=== PATIENT | female | born 1990 | race Hispanic/Latino ===

== ENCOUNTER 2018-04-15 10:09 | Emergency (ER) | payer OTHER ==
[2018-04-15 11:55] VITALS: BMI 34.0
--- NOTE | 2018-04-15 14:02 | US ---
PROCEDURE: HISTORY: LMP COMPARISON: None TECHNIQUE: Transabdominal scanning of the maternal pelvis and a 2nd/ 3rd trimester with image documentation FINDINGS: Fetus: Single intrauterine gestation heart rate: Present at 127 beats per minute presentation: Cephalic Placenta: Fundal and left-sidedwithout previa or abruption Amniotic fluid : Normal appearing: anatomy: Limited due to late gestation. Biophysical profile: Breathin Gross body movements: 2 Limb tone: 2 Amniotic Fluid: 2 Total biophysical profile: 06/02 IMPRESSION: Single intrauterine gestation with normal cardiac activity. presentation - cephalic. No previa . Biophysical profile 06/02 The gestational age by 35 weeks 6 days Estimated date of delivery 05/14/2018
--- NOTE | 2018-04-15 15:09 | OBHP ---
Datetime: 04/15/2018 15:00 IP Adm Impression: Term, intrauterine ; No Active Labor; Intact Membranes IP Admit Plan: Observation/Evaluation; Discharge home Admit Comment, IP Provider: 28-year-old 0-2 at 35 weeks and 6 days gestational age presents to OB ED with complaint of leakage of fluids. Patient describes feeling small amount of fluid in the mo rning and was concerned if her water possibly broke. Patient denies any contractions or vaginal bleed ing. Patient reports good movement. records reviewed. Past medical history gestational diabetes, diet controlled Past surgical history denies Medications vitamins No known drug allergies Obstetrical history full-term 2, first trimester miscarriage 1, elective TOP 1 Social history denies tobacco, drugs, alcohol Assessment: 0-2 at 35 weeks and 6 days gestational age. No evidence of spontaneous rupture of membranes at this time. No evidence of labor at this time. BPP8/8. Plan: Patient discharged home with labor precautions Follow-up in office in 1 week as already scheduled. Pelvic Type - PN: Adequate Extremities - PN: Normal Abdomen - PN: Normal Back - PN: Normal Lungs - PN: Normal Heart - PN: Normal Neurologic - PN: Normal HEENT - PN: Normal General - PN: Normal FHR - Baseline A Provider: 120s-130s Membranes, Provider: Intact Comments, ACOG Physical Exam: Sterile speculum exam: No fluid, no blood, no discharge No fluid with Valsalva Cervix long, closed, posterior Biophysical profile 06/02 Pool Provider: Negative IP Hx Assessment: The History has been Reviewed and is Current EGA AdmitDate IP: 35.6 Vital Signs Provider: Reviewed; Within Normal Limits IP Chief Complaint: Suspected ruptured membranes NICHD Variability Prov Fetus A: Moderate 6-25bpm NICHD Accel Fetus A IP Provider: 15X15 FHR Category Provider Fetus A: Category I NICHD Decel Fetus A IP Provider: None Dilatation, Provider: 0 Effacement, Provider: 0 Station, Provider: -4 Genitourinary Exam: Normal
[2018-04-15 19:05] VITALS: BP 83/43; PULSE 78; RESP 17; O2SAT 99
== END 2018-04-15 14:15 | disposition home or self-care (01) ==
LOC: H.EROB2 10:09 → H.EROB 10:25 → H.EROB2 14:15
DX: O47.1 False labor at or after 37 completed weeks of gestation (principal); O24.419 Gestational diabetes mellitus in pregnancy, unspecified control; Z3A.35 35 weeks gestation of pregnancy

== ENCOUNTER 2018-04-20 06:23 | Inpatient (IN) | payer OTHER ==
[2018-04-20 08:28] VITALS: BMI 34.3
[2018-04-20] MEDS ORDERED: Lactated Ringer's 1,000 ML IV SCH ×2 (09:00→11:45)
[2018-04-20] MEDS ORDERED: Oxytocin 30 units/LR 500ML 30 U/500 ML BAG IV SCH (09:00)
[2018-04-20 09:49] LABS: BASO % 0.3 % (0.0-2.0); EOS # 0.3 K/uL (0.0-0.7); EOS % 2.5 % (0.0-4.0); HEMOGLOBIN 11.7 g/dL (12.0-16.0); LYMPH # 2.1 K/uL (1.0-4.3); LYMPH % 16.3 % (20.0-40.0); MEAN CORPUSCULAR HEMOGLOBIN 31.8 pg (27.0-31.0); MEAN CORPUSCULAR HGB CONC 34.2 g/dL (33.0-37.0); MEAN PLATELET VOLUME 9.7 fl (7.2-11.7); MONO # 0.8 K/uL (0.0-0.8); NEUT # 9.7 K/uL (1.8-7.0); NEUT % 74.9 % (50.0-75.0); NRBC % 0.1 % (0.0-0.0); RBC 3.66 Mil/uL (3.80-5.20); RED CELL DISTRIBUTION WIDTH 12.7 % (11.5-14.5)
--- NOTE | 2018-04-20 13:42 | OBADHP ---
Datetime: 04/20/2018 08:33 Admit Comment, IP Provider: at 36.4wks c/o gush of fluid at 530am. No ctxs or VB. Pt repor ts good FM. records reviewed. GBS positive PMHx GDM-A1 PSHx denies Meds PNV NKDA OBHx fullterm x 2 SocHx No tob,ETOH,drugs A: 36.4wks PPROM, GBS negative, Category I FHT P: Admit for management of labor and delivery. Discussed options with patient. Recommended shayna dianna augmentation. Pelvic Type - PN: Adequate Extremities - PN: Normal Abdomen - PN: Normal Back - PN: Normal Breast - PN: Normal Lungs - PN: Normal Heart - PN: Normal Thyroid - PN: Normal Neurologic - PN: Normal HEENT - PN: Normal General - PN: Normal FHR - Baseline A Provider: 120s-130s Amniotic Fluid Color, Provider: Clear Membranes, Provider: Ruptured Contraction Comments Provider: occasional Comments, ACOG Physical Exam: grossly ruptured on exam clear fluid cephalic via bedside sono Vital Signs Provider: Reviewed; Within Normal Limits IP Chief Complaint: Uterine contractions; Suspected ruptured membranes NICHD Variability Prov Fetus A: Moderate 6-25bpm NICHD Accel Fetus A IP Provider: 15X15 FHR Category Provider Fetus A: Category I NICHD Decel Fetus A IP Provider: None Dilatation, Provider: 1 Effacement, Provider: 25 Station, Provider: -4 Genitourinary Exam: Normal DTRs - PN: Normal EGA AdmitDate IP: 36.4 IP Adm Impression: , intrauterine ; Ruptured Membranes IP Admit Plan: Admit to unit; Initiate labor protocol Datetime: 04/15/2018 15:00 Pool Provider: Negative IP Hx Assessment: The History has been Reviewed and is Current
--- NOTE | 2018-04-20 13:46 | OBPN ---
Datetime: 04/20/2018 13:42 IP Progress Impression: Reassuring heart rate IP Procedures: Sterile Vag Exam IP Progress Plan: Continue present management; Anesthesia consult Contraction Comments Provider: q5-7min FHR - Baseline A Provider: 120s IP Progress Note Comment: Pt requesting epidural. Contact anesthesia. FHT cat I. Vital Signs Provider: Reviewed; Within Normal Limits NICHD Accel Fetus A IP Provider: 15X15 FHR Category Provider Fetus A: Category I NICHD Variability Prov Fetus A: Moderate 6-25bpm Dilatation, Provider: 2-3 Effacement, Provider: 50 Station, Provider: -1 NICHD Decel Fetus A IP Provider: None Datetime: 04/20/2018 08:33 Membranes, Provider: Ruptured Amniotic Fluid Color, Provider: Clear Datetime: 04/15/2018 15:00 Pool Provider: Negative
--- NOTE | 2018-04-20 19:42 | OBDS ---
DELIVERY PERSONNEL Delivery Doctor: Dr Williamson [employer] Driver: MBorrWhitley Duran Anesthesiologist: Dr Bland MATERNAL INFORMATION Delivery Anesthesia: Epidural Medications in Delivery: Pitocin Estimated Blood Loss (ml): 250 Placenta Cultured: No Maternal Complications: None Provider Comments: Normal spontaneous vaginal delivery. Patient delivered viable male with Apgars of 8 and 9 at one and 5 minutes respectively. No lacerations, perineum intact. Placenta delivered spontaneously. Uterus firm and appropriately hemosta tic following delivery. Pediatrics present to evaluate due to status. Patient tolerate d delivery well. No complications. Estimated blood loss 200 mL. LABOR SUMMARY EDC: 05/14/2018 00:00 No. Babies in Womb: 1 Attempted: No Labor Anesthesia: Epidural LABOR INFORMATION Reason for Induction: Not Applicable Onset of Labor: 04/20/2018 05:30 Complete Dilatation: 04/20/2018 15:30 Oxytocin: Augmentation Group B Beta Strep: N/A Antibiotics # of Doses: n/a Antibiotics Time of Last Dose: n/a Steroids Given: None Reason Steroids Not Administered: Not Applicable MEMBRANES Membranes Rupture Method: Spontaneous Rupture of Membranes: 04/20/2018 05:30 Length of Rupture (hrs): 10.17 Amniotic Fluid Color: Clear Amniotic Fluid Amount: Moderate Amniotic Fluid Odor: Normal STAGES OF LABOR Stage 1 hrs: 10 Stage 1 min: 0 Stage 2 hrs: 0 Stage 2 min: 10 Stage 3 hrs: 0 Stage 3 min: 1 Total Time in Labor hrs: 10 Total Time in Labor min: 11 VAGINAL DELIVERY Episiotomy: None Laceration Extension: N/A Laceration Type: None Laceration Repair: Not Applicable Initial Vag Sponge Count: laps=5 and 1 without ring and 4x4=10 Final Vag Sponge Count: laps 5 and 1 without ring and 4x4=10 Sponge Count Correct: Yes Sharps Count Correct: N/A Count Comment: count correct BABY A INFORMATION Delivery Date/Time: 04/20/2018 15:40 Method of Delivery: Vaginal Born in Route : No : N/A Forceps: N/A Vacuum Extraction: N/A Shoulder Dystocia : No SHOULDER DYSTOCIA BABY A Infant Delivery Date/Time: 04/20/2018 15:40 PRESENTATION/POSITION BABY A Presentation: Cephalic Cephalic Presentation: Vertex Breech Presentation: N/A PLACENTA INFORMATION BABY A Placenta Delivery Time : 04/20/2018 15:41 Placenta Method of Delivery: Spontaneous Placenta Status: Delivered SCORES BABY A Heart Rate 1 min: >100 bpm Resp Effort 1 min: Slow, Irregular Reflex Irritability 1 min: Cough or Sneeze or Pulls Away Muscle Tone 1 min: Active Motion Color 1 min: Body [place], Extremities Blue Resuscitation Effort 1 min: Tactile Stimulation; Oxygen; PPV/NCPAP SCORE 1 MIN: 8 Heart Rate 5 min: >100 bpm Resp Effort 5 min: Good Cry Reflex Irritability 5 min: Cough or Sneeze or Pulls Away Muscle Tone 5 min: Active Motion Color 5 min: Body [place], Extremities Blue Resuscitation Effort 5 min: N/A SCORE 5 MIN: 9 INFANT INFORMATION BABY A Gestational Age at Delivery: 36.5 Gestational Status: Infant Outcome : Liveborn Infant Condition : Stable Sex: Male IDENTIFICATION/MEDS BABY A ID Band Number: [id number] ID Band Location: Left Leg; Left Arm Vitamin K Given : Not Given Erythromycin Given: Not Given WEIGHT/LENGTH BABY A Infant Birthweight (gms): 1961 Weight (lb): 4 Infant Weight (oz): 5 CORD INFORMATION BABY A No. Cord Vessels: 3 Nuchal Cord : N/A Nuchal Cord Other: n/a True Knot: n/a Cord Blood Taken: Yes Banking/Donate Info: n/a Suction: Mouth; Nose ASSESSMENT BABY A Infant Complications: None Physical Findings at Delivery: Within Normal Limits; Molding of the Head Infant Respirations: Appears Normal Skin Fitter/ALS Called : No Infant Care By: Humberto/Mario/Maya
--- NOTE | 2018-04-20 19:45 | OBDS ---
DELIVERY PERSONNEL Delivery Doctor: Dr Williamson Kaiako Kohanga Reo: MBorrWhitley Duran Anesthesiologist: Dr Bland MATERNAL INFORMATION Delivery Anesthesia: Epidural Medications in Delivery: Pitocin Estimated Blood Loss (ml): 250 Placenta Cultured: No Maternal Complications: None Provider Comments: Normal spontaneous vaginal delivery. Patient delivered viable male with Apgars of 8 and 9 at one and 5 minutes respectively. No lacerations, perineum intact. Placenta delivered spontaneously. Uterus firm and appropriately hemosta tic following delivery. Pediatrics present to evaluate due to status. Patient tolerate d delivery well. No complications. Estimated blood loss 200 mL. LABOR SUMMARY EDC: 05/14/2018 00:00 No. Babies in Womb: 1 Attempted: No Labor Anesthesia: Epidural LABOR INFORMATION Reason for Induction: Not Applicable Onset of Labor: 04/20/2018 05:30 Complete Dilatation: 04/20/2018 15:30 Oxytocin: Augmentation Group B Beta Strep: N/A Antibiotics # of Doses: n/a Antibiotics Time of Last Dose: n/a Steroids Given: None Reason Steroids Not Administered: Not Applicable MEMBRANES Membranes Rupture Method: Spontaneous Membranes Rupture Method: Spontaneous Rupture of Membranes: 04/20/2018 05:30 Length of Rupture (hrs): 10.17 Amniotic Fluid Color: Clear Amniotic Fluid Color: Clear Amniotic Fluid Amount: Moderate Amniotic Fluid Amount: Moderate Amniotic Fluid Odor: Normal Amniotic Fluid Odor: Normal STAGES OF LABOR Stage 1 hrs: 10 Stage 1 min: 0 Stage 2 hrs: 0 Stage 2 min: 10 Stage 3 hrs: 0 Stage 3 min: 1 Total Time in Labor hrs: 10 Total Time in Labor min: 11 VAGINAL DELIVERY Episiotomy: None Laceration Extension: N/A Laceration Type: None Laceration Repair: Not Applicable Initial Vag Sponge Count: laps=5 and 1 without ring and 4x4=10 Final Vag Sponge Count: laps 5 and 1 without ring and 4x4=10 Sponge Count Correct: Yes Sharps Count Correct: N/A Count Comment: count correct BABY A INFORMATION Infant Delivery Date/Time: 04/20/2018 15:40 Method of Delivery: Vaginal Born in Route : No : N/A Forceps: N/A Vacuum Extraction: N/A Shoulder Dystocia : No SHOULDER DYSTOCIA BABY A Delivery Date/Time: 04/20/2018 15:40 PRESENTATION/POSITION BABY A Presentation: Cephalic Cephalic Presentation: Vertex Breech Presentation: N/A PLACENTA INFORMATION BABY A Placenta Delivery Time : 04/20/2018 15:41 Placenta Method of Delivery: Spontaneous Placenta Status: Delivered SCORES BABY A Heart Rate 1 min: >100 bpm Resp Effort 1 min: Slow, Irregular Reflex Irritability 1 min: Cough or Sneeze or Pulls Away Muscle Tone 1 min: Active Motion Color 1 min: Body [place], Extremities Blue Resuscitation Effort 1 min: Tactile Stimulation; Oxygen; PPV/NCPAP SCORE 1 MIN: 8 Heart Rate 5 min: >100 bpm Resp Effort 5 min: Good Cry Reflex Irritability 5 min: Cough or Sneeze or Pulls Away Muscle Tone 5 min: Active Motion Color 5 min: Body [place], Extremities Blue Resuscitation Effort 5 min: N/A SCORE 5 MIN: 9 INFANT INFORMATION BABY A Gestational Age at Delivery: 36.5 Gestational Status: Outcome : Liveborn Infant Condition : Stable Sex: Male IDENTIFICATION/MEDS BABY A ID Band Number: [id number] ID Band Location: Left Leg; Left Arm Vitamin K Given : Not Given Erythromycin Given: Not Given WEIGHT/LENGTH BABY A Infant Birthweight (gms): 1961 Infant Weight (lb): 4 Weight (oz): 5 CORD INFORMATION BABY A No. Cord Vessels: 3 Nuchal Cord : N/A Nuchal Cord Other: n/a True Knot: n/a Cord Blood Taken: Yes Banking/Donate Info: n/a Suction: Mouth; Nose ASSESSMENT BABY A Infant Complications: None Physical Findings at Delivery: Within Normal Limits; Molding of the Head Infant Respirations: Appears Normal Speedboat Driver/ALS Called : No Infant Care By: Humberto/Mario/Maya
[2018-04-21 06:20] LABS: HEMOGLOBIN 11.9 g/dL (12.0-16.0); MEAN CELL VOLUME 93.2 fl (81.0-99.0); MEAN CORPUSCULAR HEMOGLOBIN 31.4 pg (27.0-31.0); MEAN CORPUSCULAR HGB CONC 33.7 g/dL (33.0-37.0); RBC 3.78 Mil/uL (3.80-5.20); RED CELL DISTRIBUTION WIDTH 12.9 % (11.5-14.5); WHITE BLOOD COUNT 15.9 K/uL (4.8-10.8)
[2018-04-21] MEDS: Multivitamin With Minerals Tab PO SCH (08:17)
[2018-04-22] MEDS: Multivitamin With Minerals Tab PO SCH (08:34)
--- NOTE | 2018-04-22 12:14 | OBPPN ---
Datetime: 04/22/2018 12:11 PP Pain Prov: Within normal limits PP Nausea Prov: Denies PP Flatus Prov: Yes PP BM Prov: Yes PP Breasts Prov: Normal PP Heart Prov: Normal PP Lungs Prov: Normal PP Abdomen/Uterus Prov: Normal PP Lochia Prov: Normal PP Vulva/Perineum Prov: Normal PP CVA Tenderness Prov: Normal PP Extremities Prov: Normal PP C/S Incision Prov: Not Applicable PP Progress Prov: Normal PP Comments Phys Exam Prov: Abdomen soft, nontender, nondistended Uterus firm, below umbilicus No deep calf tenderness bilaterally PP Impression Prov: Normal progression PP Plan Prov: Discharge PP Progress Note Prov: day #2 status post , patient recovering well Patient discharged home today with instructions Follow-up IN 6 weeks for visit IP PP Procedures: None
--- NOTE | 2018-04-22 12:14 | OBDCSUM ---
Datetime: 04/22/2018 12:06 Discharged to, Provider: Home Follow up at, Provider: [facility] Disch Instr Activity: Normal activity Disch Instr Diet: Regular Discharge Instructions, Provider: Routine instructions given Discharge Diagnosis, Provider: Labor Discharge Time: 04/22/2018 12:12 Follow up in weeks, Provider: 4 weeks Disch Referrals: None Contraception discussed, Prov: Yes Disch Activity Restrictions: No lifting; No sexual activity; Nothing in vagina - [place], tampon s, douche
[2018-04-22 23:04] VITALS: BP 129/79; PULSE 82; RESP 20; TEMP 98.7; O2SAT 100
== END 2018-04-22 15:00 | disposition home or self-care (01) | DRG 372 ==
LOC: H.EROB2 06:23 → H.L&D 08:49 → H.OB/GYN 19:03
PROVIDERS: ADMIT Obstetrics & Gynecology; ATTEND Obstetrics & Gynecology
PROC: 10E0XZZ Delivery of Products of Conception, External Approach (ICD-10-PCS; principal; 2018-04-20)
PROC: 4A1HXCZ Monitoring of Products of Conception, Cardiac Rate, External Approach (ICD-10-PCS; 2018-04-20)
DX: O60.14X0 Preterm labor third trimester with preterm delivery third trimester, not applicable or unspecified (principal); O42.913 Preterm premature rupture of membranes, unspecified as to length of time between rupture and onset of labor, third trimester; O99.820 Streptococcus B carrier state complicating pregnancy; Z3A.36 36 weeks gestation of pregnancy; Z37.0 Single live birth; Z86.32 Personal history of gestational diabetes